=== PATIENT | male | born 1935 | race Hispanic/Latino ===

== ENCOUNTER 2019-09-04 09:47 | Observation (INO) | payer MEDICARE, OTHER ==
[~2019-09-04 09:47] MED LIST: BACTERIOSTATIC SODIUM CHLORIDE 0.9% 30 ML VIAL INFILTRATI ONE; LIDOCAINE MPF (2%) 20 MG/1 ML VIAL 5 ML ONE; ONDANSETRON 4 MG/2 ML INJ ONE; fentaNYL 100 MCG/2 ML INJ ONE; propofoL 200 MG/20 ML VIAL IV ONE
--- NOTE | 2019-09-04 10:28 | Emergency Department Report ---
ED General Adult HPI - General Chief complaint: Medical Clearance Time Seen by Provider: 09/04/19 10:15 Source: patient Mode of arrival: Wheelchair Limitations: No Limitations - History of Present Illness Initial comments: 83-year-old male with a past medical history of end-stage renal disease on dialysis Sunday, Sunday, Sunday, and unilateral nephrectomy presents to the hospital with complaints of AV fistula malfunction. Patient states last Sunday 8 days ago they were only able to perform dialysis x1 hour due to malfunctioning fistula. He did however receive dialysis this past Sunday and Sunday. 2 days ago on Sunday patient had outpatient attempted declotting of fistula however, when he went to dialysis yesterday i.e. Sunday there was no palpable thrill. Patient was sent here by vascular surgeon for correction of fistula malfunction. Pt denies sob, fever, or pain. Patient does continue to make urine. sheet metal work furnace installer: Dr. Yin. Vascular doctor Dr. Sam - Related Data Home Medications Medication Instructions Recorded Confirmed Last Taken Flomax 0.8 mg PO DAILY 09/04/19 09/04/19 Unknown Losartan 100 mg PO DAILY 09/04/19 09/04/19 Unknown Metoprolol 50 mg PO DAILY 09/04/19 09/04/19 Unknown Proscar 5 mg PO DAILY 09/04/19 09/04/19 Unknown Vitamin D3 2,000 mg PO DAILY 09/04/19 09/04/19 Unknown Allergies Allergy/AdvReac Type Severity Reaction Status Date / Time prochlorperazine Allergy Seizure Verified 09/04/19 09:47 [From Compazine] ED Review of Systems ROS: Stated complaint: Other details as noted in HPI Comment: All other systems reviewed and negative ED Past Medical Hx - Past Medical History Hx Hypertension: Yes Hx Renal Disease: Yes (ESRD) Additional medical history: 1 KIDNEY - Surgical History Additional Surgical History: COLON REMOVED - Social History Smoking Status: Never Smoker Substance Use Type: None - Medications Home Medications: Home Medications Medication Instructions Recorded Confirmed Last Taken Type Flomax 0.8 mg PO DAILY 09/04/19 09/04/19 Unknown History Losartan 100 mg PO DAILY 09/04/19 09/04/19 Unknown History Metoprolol 50 mg PO DAILY 09/04/19 09/04/19 Unknown History Proscar 5 mg PO DAILY 09/04/19 09/04/19 Unknown History Vitamin D3 2,000 mg PO DAILY 09/04/19 09/04/19 Unknown History ED Physical Exam - General Limitations: No Limitations - Other Other exam information: General: No acute distress Head: Atraumatic Eyes: normal appearance ENT: Moist mucous membranes Neck: Normal appearance, no midline tenderness Chest: Clear to auscultation bilaterally CV: Regular rate and rhythm Abdomen: Soft, normal bowel sounds, nontender, nondistended, no rebound or guarding Back: Normal inspection Extremity: Left arm AV fistula with bruising without warmth or swelling. No palpable thrill Neuro: Alert O x 3, no facial asymmetry, speech clear, no gross motor sensory deficit Psych: Appropriate behavior Skin: No rash ED Course Vital Signs 09/04/19 09:47 Temperature 98.1 F Pulse Rate 54 L Respiratory 18 Rate Blood Pressure 167/66 O2 Sat by Pulse 100 Oximetry - Consultations Consultation #1: 09/04/19 10:20 Dr Sam (vascular) in ed to consent pt 09/04/19 11:52 case d/w Dr Yin, nephro ED Medical Decision Making - Lab Data Result diagrams: 09/04/19 10:41 09/04/19 10:41 Lab Results 09/04/19 09/04/19 09/04/19 Range/Units 10:41 10:41 10:41 WBC 7.8 (4.5-11.0) K/mm3 RBC 3.26 L (3.65-5.03) M/mm3 Hgb 11.1 L (11.8-15.2) gm/dl Hct 32.0 L (35.5-45.6) % MCV 98 H (84-94) fl MCH 34 H (28-32) pg MCHC 35 H (32-34) % RDW 13.4 (13.2-15.2) % Plt Count 257 (140-440) K/mm3 PT 14.1 (12.2-14.9) Sec. INR 1.08 (0.87-1.13) APTT 23.8 L (24.2-36.6) Sec. Sodium 140 (137-145) mmol/L Potassium 5.7 H (3.6-5.0) mmol/L Chloride 108.9 H (98-107) mmol/L Carbon Dioxide 19 L (22-30) mmol/L Anion Gap 18 mmol/L BUN 30 H (9-20) mg/dL Creatinine 6.2 H (0.8-1.5) mg/dL Estimated GFR 9 ml/min BUN/Creatinine Ratio 5 % Glucose 89 (75-100) mg/dL Calcium 9.2 (8.4-10.2) mg/dL - Medical Decision Making pt with hyperkalemia but no symptoms of volume overload. Medications ordered for hyperkalemia. Vascular surgeon came to ED to evaluate patient. Thermostat Mechanic consult ordered. - Differential Diagnosis Fistula malfunction Critical Care Time: No Critical care attestation.: If time is entered above; I have spent that time in minutes in the direct care of this critically ill patient, excluding procedure time. ED Disposition Clinical Impression: ESRD needing dialysis, Dialysis AV fistula malfunction, Hyperkalemia Disposition: OP ADMIT IP TO THIS HOSP Is pt being admited?: Yes Condition: Stable Referrals: [facility] [Primary Care Provider] - 3-5 Days Time of Disposition: 11:38 (Dr Huerta/hosp)
[2019-09-04 11:10] LABS: Hemoglobin 11.1 gm/dl (11.8-15.2); Mean Corpuscular HGB Conc 35 % (32-34); Mean Corpuscular Volume 98 fl (84-94); Platelet Count 257 K/mm3 (140-440); Red Blood Count 3.26 M/mm3 (3.65-5.03); Red Cell Distribution Width 13.4 % (13.2-15.2)
[2019-09-04 11:17] LABS: INR 1.08 (0.87-1.13); Partial Thromboplastin Time 23.8 Sec. (24.2-36.6)
[2019-09-04 11:26] LABS: Calcium 9.2 mg/dL (8.4-10.2)
--- NOTE | 2019-09-04 11:37 | History and Physical Report ---
History of Present Illness Chief complaint: I could not get dialysis History of present illness: 83 YO Male with ESRD on HD(M,W,F), last dialyzed on Sunday, HTN presents to ED for evaluation. Patient states that he was unable to undergo his routine scheduled dialysis due to a malfunction of his AV fistula. Patient was seen and evaluated by vascular surgery service and was found to have a clotted AV fistula and underwent a declotting procedure on Sunday and was subsequently discharged home. Patient presented to his dialysis clinic on Sunday for routine scheduled dialysis but was unable to undergo dialysis due to recurrent AV fistula malfunction. Patient instructed to seek further care at [facility] ED. Tanvi gruber transported to [facility] via private vehicle for further evaluation and care. Patient seen and and evaluated in the emergency department. Lab and imaging studies reviewed. Patient found to have end-stage renal disease in need of dialysis, acidosis, as well as a lack of a palpable thrill over the patient's AV fistula which is suggestive of a clot. Nephrology service consulted in ED. Vascular surgery service consulted in ED. Patient is pending surgical intervention. Patient denies fever, chills, chest pain, shortness of breath, productive cough, skin rash, hemoptysis, known ill contacts. No prior admission for review. All medication listed at time of admission has been reconciled. Advanced care planning conducted in the ED. Past History Past Medical History: ESRD, hypertension Past Surgical History: bowel surgery, Other (Nephrectomy) Social history: . denies: smoking, alcohol abuse, prescription drug abuse Family history: hypertension Medications and Allergies Allergies Allergy/AdvReac Type Severity Reaction Status Date / Time prochlorperazine Allergy Seizure Verified 09/04/19 09:47 [From Compazine] Home Medications Medication Instructions Recorded Confirmed Last Taken Type Flomax 0.8 mg PO DAILY 09/04/19 09/04/19 Unknown History Losartan 100 mg PO DAILY 09/04/19 09/04/19 Unknown History Metoprolol 50 mg PO DAILY 09/04/19 09/04/19 Unknown History Proscar 5 mg PO DAILY 09/04/19 09/04/19 Unknown History Vitamin D3 2,000 mg PO DAILY 09/04/19 09/04/19 Unknown History Active Meds: Active Medications Albuterol (Proventil) 10 mg IH ONCE ONE Stop: 09/04/19 11:37 Dextrose (D50w (25gm) Vial) 25 gm IV ONCE ONE; Protocol Stop: 09/04/19 11:36 Calcium Gluconate 1,000 mg/ (Sodium Chloride) 110 mls @ 660 mls/hr IV ONCE ONE Stop: 09/04/19 11:44 Review of Systems Constitutional: no weight loss, no weight gain, no fever, no chills Ears, nose, mouth and throat: no ear pain, no ear discharge, no tinnitis, no nose pain, no nasal congestion Cardiovascular: no orthopnea, no palpitations, no lightheadedness Respiratory: no cough, no excessive sputum, no hemoptysis, no shortness of breath Gastrointestinal: no nausea, no vomiting, no diarrhea, no constipation Genitourinary Male: no hematuria, no flank pain, no discharge, no urinary frequency, no urinary hesitancy Rectal: no pain, no incontinence, no bleeding Musculoskeletal: no neck stiffness, no neck pain, no shooting arm pain, no low back pain, no leg numbness/tingling Integumentary: no rash, no pruritis, no sores, no wounds, no jaundice Neurological: no transient paralysis, no paralysis, no weakness, no numbness, no tingling, no syncope Psychiatric: no anxiety, no sleep disturbances, no hypersomnia, no change in appetite, no change in libido Endocrine: no cold intolerance, no heat intolerance, no polyphagia, no polydipsia, no excessive sweating Hematologic/Lymphatic: no easy bruising, no easy bleeding Allergic/Immunologic: no urticaria, no allergic rhinitis Exam - Constitutional Vitals: Temp Pulse Resp BP Pulse Ox 98.1 F 54 L 18 167/66 100 09/04/19 09:47 09/04/19 09:47 09/04/19 09:47 09/04/19 09:47 09/04/19 09:47 General appearance: Present: mild distress - EENT Eyes: Present: PERRL ENT: hearing intact, clear oral mucosa - Neck Neck: Present: supple, normal ROM - Respiratory Respiratory effort: normal Respiratory: bilateral: CTA - Cardiovascular Heart Sounds: Present: S1 & S2. Absent: rub, click - Extremities Extremities: pulses symmetrical, No edema Peripheral Pulses: within normal limits - Abdominal General gastrointestinal: Present: soft, non-tender, non-distended, normal bowel sounds Male genitourinary: Present: normal - Integumentary Integumentary: Present: clear, warm, dry - Musculoskeletal Musculoskeletal: gait normal, strength equal bilaterally - Psychiatric Psychiatric: appropriate mood/affect, intact judgment & insight - Neurologic Neurologic: CNII-XII intact, moves all extremities Results - Labs CBC & Chem 7: 09/04/19 10:41 09/04/19 10:41 Labs: Abnormal lab results 09/04/19 09/04/19 09/04/19 Range/Units 10:41 10:41 10:41 RBC 3.26 L (3.65-5.03) M/mm3 Hgb 11.1 L (11.8-15.2) gm/dl Hct 32.0 L (35.5-45.6) % MCV 98 H (84-94) fl MCH 34 H (28-32) pg MCHC 35 H (32-34) % APTT 23.8 L (24.2-36.6) Sec. Potassium 5.7 H (3.6-5.0) mmol/L Chloride 108.9 H (98-107) mmol/L Carbon Dioxide 19 L (22-30) mmol/L BUN 30 H (9-20) mg/dL Creatinine 6.2 H (0.8-1.5) mg/dL Assessment and Plan - Patient Problems (1) ESRD needing dialysis Current Visit: Yes Status: Acute Plan to address problem: Strict I's/O, monitor urine output every shift, daily weight, avoid nephrotoxic agents, nephrology team consulted in ED. Dialysis as per renal team. (2) Acidosis Current Visit: Yes Status: Acute Plan to address problem: Urgent dialysis, supportive care, BMP, repeat BMP in a.m. (3) Dialysis AV fistula malfunction Current Visit: Yes Status: Acute Qualifiers: Encounter type: initial encounter Qualified Code(s): T82.590A - Other mechanical complication of surgically created arteriovenous fistula, initial encounter Plan to address problem: Vascular surgery service consulted in ED, patient is pending surgical intervention. (4) Hyperkalemia Current Visit: Yes Status: Acute Plan to address problem: Calcium gluconate, insulin, D50, no EKG changes. Dialysis as per renal team. (5) DVT prophylaxis Current Visit: Yes Status: Acute Plan to address problem: SCD to bilateral lower extremities while in bed, patient is ambulatory. (6) Advance care planning Current Visit: Yes Status: Acute Plan to address problem: Patient is full code, disease education conducted, patient acknowledges understanding and agreement with care plan, +30 minutes.
[2019-09-04] MEDS ORDERED: ACETAMINOPHEN 325 MG TAB PO PRN (11:46)
[2019-09-04] MEDS ORDERED: ONDANSETRON 4 MG/2 ML INJ IV PRN (11:46)
[2019-09-04] MEDS: ALBUTEROL 2.5 MG/3 ML NEBU IH ONE (11:57)
--- NOTE | 2019-09-04 12:05 | Consultation ---
History of Present Illness - Reason for Consult Consult date: 09/04/19 Clotted access Requesting physician: BESSY MCKEON - History of Present Illness HPI: 83-year-old gentleman with end-stage renal disease on hemodialysis via left arm AV fistula who presents after unable to undergo dialysis due to concern of his access being thrombosed. The patient had been having issues recently with cannulation of his access and elevated pressures. The patient was seen at our center where I attempted to intervene on his access endovascularly. However, the patient was unable to tolerate conscious sedation and the procedure had to be terminated prematurely. We have been consulted to address the patient's need for dialysis access. PE: No acute distress, alert and oriented x3 Regular rate and rhythm Non-labored respirations Left arm AV fistula with no thrill or pulse palpated Left brachial pulse 2+ Left arm motor and sensory intact Plan: 83-year-old gentleman with clotted left arm AV fistula We will attempt to take the patient to the operating room for AV fistula thrombectomy to try and salvage the patient's access If unsuccessful, will plan to place AV graft with PermCath. Patient and his explained all the risk benefits and alternatives, they expressed understanding and wished to proceed. Patient consented and marked. Medications and Allergies Allergies Allergy/AdvReac Type Severity Reaction Status Date / Time prochlorperazine Allergy Seizure Verified 09/04/19 09:47 [From Compazine] Home Medications Medication Instructions Recorded Confirmed Last Taken Type Flomax 0.8 mg PO DAILY 09/04/19 09/04/19 Unknown History Losartan 100 mg PO DAILY 09/04/19 09/04/19 Unknown History Metoprolol 50 mg PO DAILY 09/04/19 09/04/19 Unknown History Proscar 5 mg PO DAILY 09/04/19 09/04/19 Unknown History Vitamin D3 2,000 mg PO DAILY 09/04/19 09/04/19 Unknown History Active Meds: Active Medications Acetaminophen (Tylenol) 650 mg PO Q4H PRN PRN Reason: Pain MILD(1-3)/Fever >100.5/HUGHES Dextrose (D50w (25gm) Vial) 25 gm IV ONCE ONE; Protocol Stop: 09/04/19 12:01 Calcium Gluconate 1,000 mg/ (Sodium Chloride) 110 mls @ 220 mls/hr IV ONCE ONE Stop: 09/04/19 12:29 Losartan Potassium (Cozaar) 100 mg PO QDAY [facility] Metoprolol Succinate (Metoprolol Xl) 50 mg PO QDAY [facility] Miscellaneous Medication (Metoprolol) 50 mg PO DAILY [facility] Miscellaneous Medication (Proscar) 5 mg PO DAILY [facility] Miscellaneous Medication (Vitamin D3) 2,000 mg PO DAILY [facility] Ondansetron HCl (Zofran) 4 mg IV Q8H PRN PRN Reason: Nausea And Vomiting Sodium Chloride (Sodium Chloride Flush Syringe 10 Ml) 10 ml IV BID [facility] Sodium Chloride (Sodium Chloride Flush Syringe 10 Ml) 10 ml IV PRN PRN PRN Reason: LINE FLUSH Tamsulosin HCl (Flomax) 0.8 mg PO QDAY [facility] Exam - Constitutional Vitals: Temp Pulse Resp BP Pulse Ox 98.1 F 54 L 18 167/66 100 09/04/19 09:47 09/04/19 09:47 09/04/19 09:47 09/04/19 09:47 09/04/19 09:47 Results - Labs CBC & Chem 7: 09/04/19 10:41 09/04/19 10:41 Labs: Abnormal lab results 09/04/19 09/04/19 09/04/19 Range/Units 10:41 10:41 10:41 RBC 3.26 L (3.65-5.03) M/mm3 Hgb 11.1 L (11.8-15.2) gm/dl Hct 32.0 L (35.5-45.6) % MCV 98 H (84-94) fl MCH 34 H (28-32) pg MCHC 35 H (32-34) % APTT 23.8 L (24.2-36.6) Sec. Potassium 5.7 H (3.6-5.0) mmol/L Chloride 108.9 H (98-107) mmol/L Carbon Dioxide 19 L (22-30) mmol/L BUN 30 H (9-20) mg/dL Creatinine 6.2 H (0.8-1.5) mg/dL
[2019-09-04] MEDS: CALCIUM GLUCONATE 1,000 MG in SODIUM CHLORIDE 0.9% 100 ML IV ONE (12:09)
[2019-09-04] MEDS: SODIUM BICARB 8.4% 50 MEQ/50 ML SYRINGE IV ONE (12:09)
[2019-09-04] MEDS: SODIUM POLYSTYRENE 15 GM/60 ML ORAL LIQD PO ONE (12:09)
[2019-09-04] MEDS: DEXTROSE 50% IN WATER (25GM) 50 ML VIAL IV ONE ×2 (12:11→12:21)
[2019-09-04] MEDS: INSULIN REGULAR, HUMAN 100 UNITS/1 ML IV ONE (12:11)
[2019-09-04] MEDS ORDERED: DEXTROSE 50% IN WATER (25GM) 50 ML SYRINGE IV ONE (12:12)
[2019-09-04] MEDS ORDERED: CHOLECALCIFEROL (VIT D3) 1000 UNIT (25 mcg) TAB PO SCH (13:00)
--- NOTE | 2019-09-04 13:08 | Anesthesia Consultation ---
Anesthesia Consult and Med Hx Date of service: 09/04/19 - Airway Anesthetic Teeth Evaluation: Dentures (upper), Partials (lower) ROM Head & Neck: Adequate Mental/Hyoid Distance: Adequate Mallampati Class: Class II Intubation Access Assessment: Probably Good - Pulmonary Exam CTA: Yes - Cardiac Exam Cardiac Exam: RRR - Pre-Operative Health Status ASA Pre-Surgery Classification: ASA3 Proposed Anesthetic Plan: General - Pulmonary Hx Respiratory Symptoms: No - Cardiovascular System Hx Hypertension: Yes Hx Heart Attack/AMI: No (will give home dose metoprolol in preop) Hx Percutaneous Transluminal Coronary Angioplasty (PTCA): No - Central Nervous System CVA: Yes (remote hx TIA) - Gastrointestinal Hx Gastroesophageal Reflux Disease: Yes (mild, diet controlled) - Endocrine Hx End Stage Renal Disease: Yes (last HD 08/31) Hx Liver Disease: No Hx Insulin Dependent Diabetes: No Hx Non-Insulin Dependent Diabetes: No Hx Thyroid Disease: No - Hematic Hx Anemia: No - Other Systems Hx Obesity: No - Additional Comments Anesthesia Medical History Comments: No hx anesthetic complications.
--- NOTE | 2019-09-04 13:09 | Anesthesia Day of Surgery ---
Anesthesia Day of Surgery - Day of Surgery Patient Examined: Yes Patient H&P Reviewed: Yes Patient is NPO: Yes Beta Blockers: Yes (metoprolol given in preop)
[2019-09-04] MEDS: METOPROLOL SUCCINATE XL 50 MG TAB PO SCH (13:15)
[2019-09-04] MEDS ORDERED: SODIUM CHLORIDE 0.9% 1000 ML 1,000 ML IV SCH (13:30)
[2019-09-04] MEDS ORDERED: PROTAMINE SULFATE 50 MG/5 ML INJ ONE (13:32)
[2019-09-04] MEDS ORDERED: BUPIVACAINE-EPINEPHRINE/PF 0.5%-1:200,000 (30 ML) VIAL INFILTRATI ONE (13:32)
[2019-09-04] MEDS ORDERED: HEPARIN 10,000 UNITS/10 ML VIAL ONE (13:32)
[2019-09-04] MEDS ORDERED: SODIUM CHLORIDE 0.9% 250ML 250 ML ONE ×2 (13:32→15:42)
[2019-09-04] MEDS ORDERED: LIDOCAINE 1%/EPINEPHRINE 1:100,000 VIAL (20 ML) INFILTRATI ONE (13:33)
[2019-09-04] MEDS ORDERED: GELATIN SPONGE SIZE 100 TP ONE (13:33)
[2019-09-04] MEDS ORDERED: THROMBIN (RECOMBINANT) 5,000 UNIT VIAL TP ONE (13:33)
[2019-09-04] MEDS: SODIUM CHLORIDE 0.9% 1000 ML 1,000 ML IV SCH (13:35)
[2019-09-04] MEDS ORDERED: ceFAZolin/STERILE WATER 2 GM/20 ML SYRINGE IV NR (14:00)
[2019-09-04] MEDS ORDERED: ePHEDrine SULFATE 50 MG/1 ML INJ ONE (14:03)
[2019-09-04 14:06] LABS: Calcium 9.7 mg/dL (8.4-10.2)
[2019-09-04] MEDS ORDERED: fentaNYL 100 MCG/2 ML INJ IV PRN (14:30)
[2019-09-04] MEDS: HEPARIN 10,000 UNITS/10 ML VIAL IV ONE (14:31)
[2019-09-04] MEDS: SODIUM CHLORIDE 0.9% IRR 1,500 ML BOTTLE IR ONE (14:32)
[2019-09-04] MEDS: SODIUM CHLORIDE 0.9% 250 ML IVPB IV ONE (14:32)
[2019-09-04] MEDS: THROMBIN (RECOMBINANT) 5,000 UNIT VIAL TP ONE (14:49)
[2019-09-04] MEDS: GELATIN SPONGE SIZE 100 TP ONE (14:50)
[2019-09-04] MEDS ORDERED: PHENYLEPHRINE/NS 1,000 MCG/10 ML SYRINGE (OR USE) IV ONE ×2 (16:27)
--- NOTE | 2019-09-04 16:59 | Post Operative Note ---
Date of procedure: 09/04/19 Pre-op diagnosis: ESRD Post-op diagnosis: same Findings: 90% stenosis of the arterial anastomosis, thrombosed AV fistula Procedure: 1. Left Upper Extremity AV Fistula Thrombectomy 2. Left Arm Fistulogram and Angioplasty 3. Left Brachial Arterial Anastomosis Angioplasty Anesthesia: NILDA Surgeon: ALKA BETANCOURT Estimated blood loss: other (25ml) Pathology: none Condition: stable Disposition: PACU
[2019-09-04] MEDS ORDERED: oxyCODONE /ACETAMINOPHEN 5-325MG TAB PO PRN (17:05)
--- NOTE | 2019-09-04 17:05 | Short Stay Summary ---
Short Stay Documentation Date of service: 09/04/19 - History H&P: dictated Past Medical History: ESRD, hypertension Past Surgical History: bowel surgery, Other (Nephrectomy) Social history: , no smoking, no alcohol abuse, no prescription drug abuse - Allergies and Medications Current Medications: Allergies prochlorperazine [From Compazine] Allergy (Verified 09/04/19 09:47) Seizure Home Medications Medication Instructions Recorded Confirmed Last Taken Type Flomax 0.8 mg PO DAILY 09/04/19 09/04/19 09/03/19 09:00 History Losartan 100 mg PO DAILY 09/04/19 09/04/19 09/03/19 09:00 History Metoprolol 50 mg PO DAILY 09/04/19 09/04/19 09/03/19 09:00 History Proscar 5 mg PO DAILY 09/04/19 09/04/19 09/03/19 09:00 History Vitamin D3 2,000 mg PO DAILY 09/04/19 09/04/19 09/03/19 09:00 History Active Medications Acetaminophen (Tylenol) 650 mg PO Q4H PRN PRN Reason: Pain MILD(1-3)/Fever >100.5/HUGHES Cefazolin Sodium (Ancef/Sterile Water 2 Gm/20 Ml) 2 gm IV PREOP NR Stop: 09/04/19 18:00 Cholecalciferol (Vitamin D3) 2,000 unit PO DAILY [facility] Fentanyl (Sublimaze) 50 mcg IV Q5MIN PRN PRN Reason: Pain , Severe (7-10) Stop: 09/04/19 18:00 Finasteride (Proscar) 5 mg PO QDAY [facility] Losartan Potassium (Cozaar) 100 mg PO QDAY [facility] Metoprolol Succinate (Metoprolol Xl) 50 mg PO QDAY [facility] Ondansetron HCl (Zofran) 4 mg IV Q8H PRN PRN Reason: Nausea And Vomiting Sodium Chloride (Sodium Chloride Flush Syringe 10 Ml) 10 ml IV BID [facility] Sodium Chloride (Sodium Chloride Flush Syringe 10 Ml) 10 ml IV PRN PRN PRN Reason: LINE FLUSH Tamsulosin HCl (Flomax) 0.8 mg PO QDAY [facility] - Physical exam General appearance: no acute distress Lungs: Normal air movement Heart: Regular rate Extremities: no ischemia, pulses symmetrical, No edema - Hospital course Hospital course: the patient was taken to the operating room and underwent a thrombectomy of his AV fistula. please refer to the operative note concerning details of the procedure. the patient tolerated the procedure well and was discharged home in stable condition. - Disposition Condition at discharge: Stable Disposition: [id number] TO HOME OR SELFCARE - Discharge Diagnoses (1) ESRD (end stage renal disease) on dialysis Status: Acute Short Stay Discharge Plan Follow up with: [facility] [Primary Care Provider] - 3-5 Days
--- NOTE | 2019-09-04 17:33 | Post Anesthesia Evaluation ---
- Post Anesthesia Evaluation Patient Participated: Yes Airway Patent: Yes Stable Respiratory Function: Yes Nausea/Vomiting: No Temp > 96.8F: Yes Pain Manageable: Yes Adequeate Hydration: Yes Anesthesia Complications: No Other Comments: Surgeon discussed with service mechanic. Given concern for COVID exposure if kept in-house, patient will be discharged to home with plans for outpatient HD. HD stable near preop baseline, K+ improved on recheck.
[2019-09-04 17:43] VITALS: BP 142/63
--- NOTE | 2019-09-04 18:40 | Operative Report ---
STAFF SURGEON: Dr. Jacob Sam. PREOPERATIVE DIAGNOSIS: End-stage renal disease. POSTOPERATIVE DIAGNOSIS: End-stage renal disease. PROCEDURE PERFORMED: 1. Left upper extremity AV fistula with open thrombectomy. 2. Left arm fistulogram and angioplasty. 3. Left brachial arterial anastomosis and angioplasty. COMPLICATIONS: None. ESTIMATED BLOOD LOSS: 25 mL. ANESTHESIA: General. ANGIOGRAPHIC FINDINGS: Diagnostic imaging demonstrated approximately 90% stenosis of the periarterial anastomosis as well as a thrombosed brachiocephalic AV fistula. INDICATIONS FOR PROCEDURE: This is an 83-year-old gentleman with end-stage renal disease, on hemodialysis via left arm AV fistula who underwent an attempted intervention for malfunctioning access that he was unable to tolerate in the outpatient setting. The patient then presented to the dialysis center with concerns of his access thrombosed. Therefore, the patient was then brought to the hospital and under evaluation was felt to need to undergo surgical intervention in an attempt to salvage of the patient's access. The patient was explained the risks, benefits and alternatives of procedure, expressed understanding and wished to proceed. DESCRIPTION OF PROCEDURE: After appropriate consent was obtained, the patient was brought back to the operating room and placed on the operating table in supine position with the left arm extended. The patient was given appropriate medication for general anesthesia, was intubated without difficulty. The left arm was prepped and draped in the usual sterile fashion with ChloraPrep. Appropriate preoperative antibiotics were administered. Appropriate timeout was performed indicating correct patient, procedure, and site of procedure. We then began the operation by making a longitudinal incision over the AV fistula near the antecubital fossa. This was carried through subcutaneous tissue with a combination of blunt dissection and electrocautery. The fistula was identified and mobilized for appropriate distance both proximally and distally. The patient was given 5000 units of unfractionated heparin. A transverse arteriotomy was made with an 11 blade and extended with Lamas scissors. We then proceeded to take a #4 Sharon catheter and passed it towards the arterial anastomosis and proceeded to perform a mechanical thrombectomy and significant amount of thrombus was removed with a pulsatile flow initiated. A vascular clamp was then placed on the fistula and then the Sharon catheter was then passed towards the central venous system and proceeded to perform mechanical thrombectomy of the AV fistula, removing again multiple fragments of thrombus and 2 negative passes were obtained and some backbleeding was obtained. This was then flushed with heparinized saline. We then proceeded to close the arteriotomy with interrupted 6-0 Prolene suture. Once complete flow was reestablished and on evaluation of the fistula, it was felt to be pulsatile which was confirmed by Doppler concerning for outflow obstruction, so access of the AV fistula was performed and the exposed portion with a micropuncture technique. Once access was obtained and the needle was exchanged for a micropuncture sheath, then a diagnostic fistulogram was performed, which demonstrated the findings noted above with the significant stenosis near the arterial anastomosis and no flow noted towards the cephalic arch. With this, we then proceeded to obtain a second access of the AV fistula near the shoulder again using a micropuncture technique and then when access was obtained, a needle was exchanged for a micropuncture sheath and eventually upsized to a 6-Amharic sheath. Glidewire and vertebral catheter were then advanced past the arterial anastomosis into the brachial artery. The vertebral catheter was removed. Then, a 7 mm x 40 mm balloon was placed across the lesion near the arterial anastomosis and proceeded to balloon angioplasty this lesion, which was held for approximately 2 minutes. Once that was complete, the balloon was removed. Completion angiogram of this was performed, which demonstrated less than 10% residual stenosis. There was still no flow past the mid portion of the AV fistula in the upper arm and so the initial access was also upsized to a 6-Amharic sheath and then an 8 mm x 40 mm balloon was placed over a Bentson wire, which was advanced into the central venous system and balloon angioplasty of rest of the thrombosed AV fistula was performed macerating any residual thrombus. Once that was complete, a completion angiogram was performed demonstrating a widely patent AV fistula with a palpable thrill. We then proceeded to remove all our wires and sheath. Initial access was closed with a 6-0 Prolene suture, U stitch and the second access was closed with a [id number] 3-0 nylon suture. We then looked to obtain further hemostasis along the suture lines, which was obtained with hemostatic agents. Once we were satisfied with hemostasis, the wound was closed with deep subcutaneous layer with interrupted 3-0 PDS and the skin was approximated with 4-0 Monocryl and Dermabond dressing. Appropriate dressing was placed over the second access site. The patient tolerated the procedure well, emerged from the general anesthesia, was extubated in the operating room and sent to recovery in stable condition. All the sponges, instrument and needle counts were correct at completion of the operation. JOB# [id number] N/TEE
[2019-09-05] MEDS ORDERED: LOSARTAN 50 MG TAB PO SCH (10:00)
[2019-09-05] MEDS ORDERED: TAMSULOSIN 0.4 MG CAP PO SCH (10:00)
[2019-09-05] MEDS ORDERED: FINASTERIDE 5 MG TAB PO SCH (10:00)
[2019-09-05] MEDS ORDERED: NON-FORMULARY EACH (Losartan 100 MG) PO SCH (10:00)
[2019-09-05] MEDS ORDERED: TAMSULOSIN PO SCH (10:00)
[2019-09-05] MEDS ORDERED: METOPROLOL SUCCINATE XL 50 MG TAB PO SCH (10:00)
[2019-09-05] MEDS ORDERED: NON-FORMULARY EACH (Metoprolol 50 MG) PO SCH (10:00)
[2019-09-05] MEDS ORDERED: PROSCAR 5 MG PO SCH (10:00)
== END 2019-09-04 17:21 | disposition home or self-care (01) ==
LOC: ED 09:47 → EDSTATUS 10:00 → 2B-ACE 11:46
PROVIDERS: ADMIT Internal Medicine; ATTEND Internal Medicine
DX: T82.590A Other mechanical complication of surgically created arteriovenous fistula, initial encounter (principal); I12.0 Hypertensive chronic kidney disease with stage 5 chronic kidney disease or end stage renal disease; N18.6 End stage renal disease; E87.2 Acidosis; E87.5 Hyperkalemia; Z99.2 Dependence on renal dialysis; Z90.5 Acquired absence of kidney; Z79.899 Other long term (current) drug therapy; Z88.8 Allergy status to other drugs, medicaments and biological substances; Y83.8 Other surgical procedures as the cause of abnormal reaction of the patient, or of later complication, without mention of misadventure at the time of the procedure; Y92.89 Other specified places as the place of occurrence of the external cause
CPT/HCPCS: 36415; 36833; 36901; 36907; 80048; 85027; 85610; 85730; 96365; 96375; 96376; 99284; A4649; C1725; C1757; C1769; C1894; G0378; J0610; J0690; J1644; J2370; J2405; J2704; J3010; J7030; J7050; Q9966; J1815; J2720